=== PATIENT | female | born 1995 | race Caucasian/White ===

== ENCOUNTER 2024-09-07 06:20 | Inpatient (IN) | payer OTHER, SELFPAY ==
[2024-09-07] VITALS (62 sets, daily range): BP systolic 79–121; BP diastolic 45–74; PULSE 52–107; RESP 15–18; TEMP 36.4–36.9; O2SAT 94–98; BMI 27.6
[2024-09-07] MEDS: Lactated Ringers 1,000 ML 50 ML IV (06:45)
[2024-09-07 06:57] LABS: Absolute Lymphocyte Count 2.21 X10^3/uL (0.83-4.51); Absolute Neutrophil Count 8.1 X10^3/uL (2.0-7.7); Basophil# 0.07 X10^3/uL; Basophil% 0.6 % (0-1); Eosinophil# 0.15 X10^3/uL; Eosinophils% 1.3 % (0-5); Hematocrit 38.5 % (37-47); Hemoglobin 13.3 g/dL (12.0-15.0); Lymphocyte # 2.21 X10^3/ul (0.83-4.51); Lymphocyte % 19.3 % (19-41); Mean Corp Hgb Conc 34.5 g/dL (32-36); Mean Corpuscular Hgb 30.2 pg (27.0-32.0); Mean Corpuscular Volume 87.3 fL (81-99); Mean Platelet Vol. 11.1 fl (6.2-12.0); Monocyte# 0.87 X10^3/uL; Monocyte% 7.6 % (0-10); NRBC Flagged by Analyzer 0 % (0-5); Neutrophil % 70.7 % (47-70); Platelet Count 205 K/mm3 (150-450); RBC Distribution Width CV 14.1 % (11.6-14.6); Red Blood Count 4.41 M/mm3 (4.2-5.4); White Blood Count 11.5 K/mm3 (4.4-11.0)
[2024-09-07] MEDS: Lactated Ringers 1,000 ML 999 ML IV ×3 (07:20→09:44)
--- NOTE | 2024-09-07 07:37 | PCM.HP.OB ---
HPI - General General Date of Admission: 09/07/24 Date of Service: 09/07/24 Chief Complaint: contractions HPI Narrative ROSA MARIA MCCALL, is a 29 F who presents for contractions. No LOF No bleeding. Is a scheduled IOL today at 41 weeks Maternal Data Information Final KUSUM: 08/31/24 Gestational age: 41 PFSH PFSH Medical History Anxiety GERD (gastroesophageal reflux disease) Precipitous delivery Hemorrhoids Anemia HPV (human papilloma virus) infection Migraine aura, persistent Autoimmune disease Home Medications ?Medication ?Instructions ?Recorded ?Last Taken ?Type docosahexaenoic acid 200 mg 200 mg PO 09/07/24 09/06/24 07:11 History capsule ( DHA) famotidine 20 mg tablet 20 mg PO BID heartburn 09/07/24 09/06/24 07:10 History Allergy/AdvReac Type Severity Reaction Status Date / Time boric acid Allergy Hives Verified 09/07/24 06:33 doxycycline Allergy Hives Verified 09/07/24 06:33 minocycline Allergy Hives Verified 09/07/24 06:33 penicillin G Allergy Hives Verified 09/07/24 06:33 Surgical History History of surgery History of surgery Social History Smoking Status: Former smoker History 4 Elective abortions Hx Para 2 Spontaneous abortions Hx # Term Pregnancies Ectopic pregnancies Hx # Pregnancies Multiple births # of living children NST FHR Rate Baby A Baseline: 145 Variability:: Moderate Accelerations:: 15 x 15 Decelerations:: None NST Reactive:: Yes FHR Category:: Category I Uterine Activity:: q2-4 ROS Constitutional Constitutional: Denies fatigue, fever(s) or malaise Eyes Eyes: Denies change in vision ENT HEENT: Denies dizziness or headache(s) Cardiovascular Cardiovascular: Denies chest pain, dyspnea or lightheadedness Respiratory/Chest Respiratory/Chest: Denies cough or dyspnea Gastrointestinal Gastrointestinal: Denies change in bowel habits Genitourinary Genitourinary: Denies burning urination or genital lesions Integumentary Integumentary: Denies rash Neurologic Neurologic: Denies confusion, dizziness, headache(s), numbness or weakness Vital Signs Vital Signs Vital Signs: 09/07/24 06:50 09/07/24 06:50 09/07/24 06:51 Pulse Rate 87 Blood Pressure 111/74 BP Systolic 111 BP Diastolic 74 Pulse Ox 98 09/07/24 06:51 Pulse Rate 86 Blood Pressure BP Systolic BP Diastolic Pulse Ox Weight Weight: 73.028 kg Body Mass Index (BMI) 27.6 Physical Exam Const alert and no apparent distress General Appearance: cooperative HEENT normocephalic Resp normal respiratory effort GI soft to palpation GI Narrative: gravid, nontender, appropriate for gestational age Extremity no calf tenderness General Extremity: edema Skin no wounds Rashes: No rashes noted Psych activity/motor behavior normal Labs Labs Labs: Blood Type Pending Antibody Screen Pending Hct 38.5 % (37-47) Hgb 13.3 g/dL (12.0-15.0) Syphilis Total Ab Pending Assessment & Plan (1) Elective induction of labor planned: (2) 41 weeks gestation of : PLAN: Plan Epidural prn AROM planned GBS negative
[2024-09-07] MEDS: fentaNYL-bupivacaine (epidural) 100 ML BAG EPIDURAL (08:10)
[2024-09-07 08:26] LABS: Syphilis Antibodies Nonreactive (Nonreactive)
--- NOTE | 2024-09-07 08:46 | PCM.HP.OB ---
HPI - General General Date of Admission: 09/07/24 Chief Complaint: contractions HPI Narrative ROSA MARIA MCCALL, is a 29 F who presents in active labor. at 41 weeks in active labor, was scheduled for IOL today. Contractions began around 11pm. Maternal Data Information KUSUM Calculator Estimated Delivery Date Method Current WG Current Estimate 08/31/24 Manual 41w 0d PFSH PFSH Medical History (Updated 09/07/24 @ 11:42 by Danni Myers CNM) Anxiety GERD (gastroesophageal reflux disease) Precipitous delivery Hemorrhoids Anemia HPV (human papilloma virus) infection Migraine aura, persistent Autoimmune disease Home Medications ?Medication ?Instructions ?Recorded ?Last Taken ?Type docosahexaenoic acid 200 mg 200 mg PO 09/07/24 09/06/24 07:11 History capsule ( DHA) famotidine 20 mg tablet 20 mg PO BID heartburn 09/07/24 09/06/24 07:10 History Allergy/AdvReac Type Severity Reaction Status Date / Time boric acid Allergy Hives Verified 09/07/24 06:33 doxycycline Allergy Hives Verified 09/07/24 06:33 minocycline Allergy Hives Verified 09/07/24 06:33 penicillin G Allergy Hives Verified 09/07/24 06:33 Surgical History History of surgery History of surgery Social History Smoking Status: Former smoker History 4 Elective abortions Hx Para 2 Spontaneous abortions Hx # Term Pregnancies Ectopic pregnancies Hx # Pregnancies Multiple births # of living children NST FHR Rate Baby A Baseline: 130 Variability:: Moderate Accelerations:: 15 x 15 Decelerations:: None FHR Category:: Category I Uterine Activity:: every 1- 5minutes, moderate to strong ROS Constitutional Constitutional: Reports systems reviewed and no addt'l complaints, except as documented; Denies headache(s) Eyes Eyes: Denies acute decrease in peripheral vision, blurry vision or change in vision ENT HEENT: Reports systems reviewed and no addt'l complaints, except as documented Cardiovascular Cardiovascular: Denies chest pain or dizziness Respiratory/Chest Respiratory/Chest: Denies cough, dyspnea, dyspnea on exertion, shortness of breath at rest or shortness of breath with exertion Gastrointestinal Gastrointestinal: Denies abdominal pain, diarrhea, nausea or vomiting Genitourinary Genitourinary: Denies abdominal discomfort Musculoskeletal Musculoskeletal: Denies limited range of motion Integumentary Integumentary: Reports systems reviewed and no addt'l complaints, except as documented Neurologic Neurologic: Reports systems reviewed and no addt'l complaints, except as documented Psychiatric Psychiatric: Reports systems reviewed and no addt'l complaints, except as documented Endocrine Endocrinology: Reports systems reviewed and no addt'l complaints, except as documented Hematologic/Lymphatic Hematologic/Lymphatic: Reports systems reviewed and no addt'l complaints, except as documented Allergic/Immunologic Allergic/Immunologic: Reports systems reviewed and no addt'l complaints, except as documented Vital Signs Vital Signs Vital Signs: 09/07/24 06:50 09/07/24 06:50 09/07/24 06:51 Temperature Pulse Rate 87 Respiratory Rate Blood Pressure 111/74 BP Systolic 111 BP Diastolic 74 Pulse Ox 98 09/07/24 06:51 09/07/24 07:35 09/07/24 07:35 Temperature Pulse Rate 86 Respiratory Rate 18 Blood Pressure BP Systolic BP Diastolic Pulse Ox 97 09/07/24 07:35 09/07/24 07:54 09/07/24 07:54 Temperature 98.0 F Pulse Rate 84 Respiratory Rate Blood Pressure BP Systolic BP Diastolic Pulse Ox 97 09/07/24 07:59 09/07/24 07:59 09/07/24 08:04 Temperature Pulse Rate 92 102 H Respiratory Rate Blood Pressure BP Systolic BP Diastolic Pulse Ox 97 09/07/24 08:04 09/07/24 08:06 09/07/24 08:06 Temperature Pulse Rate 88 Respiratory Rate Blood Pressure 108/57 L BP Systolic 108 BP Diastolic 57 Pulse Ox 97 09/07/24 08:08 09/07/24 08:08 09/07/24 08:09 Temperature Pulse Rate 81 86 Respiratory Rate Blood Pressure 109/57 L BP Systolic 109 BP Diastolic 57 Pulse Ox 09/07/24 08:09 09/07/24 08:10 09/07/24 08:14 Temperature Pulse Rate 101 H Respiratory Rate 18 Blood Pressure BP Systolic BP Diastolic Pulse Ox 97 09/07/24 08:14 09/07/24 08:15 09/07/24 08:17 Temperature Pulse Rate Respiratory Rate 16 Blood Pressure 94/50 L BP Systolic 94 BP Diastolic 50 Pulse Ox 97 09/07/24 08:17 09/07/24 08:18 09/07/24 08:18 Temperature Pulse Rate 80 88 Respiratory Rate Blood Pressure 85/63 L BP Systolic 85 BP Diastolic 63 Pulse Ox 09/07/24 08:19 09/07/24 08:19 09/07/24 08:19 Temperature Pulse Rate 103 H Respiratory Rate Blood Pressure 89/54 L BP Systolic 89 BP Diastolic 54 Pulse Ox 96 09/07/24 08:20 09/07/24 08:21 09/07/24 08:21 Temperature Pulse Rate 87 Respiratory Rate 16 Blood Pressure 88/49 L BP Systolic 88 BP Diastolic 49 Pulse Ox 09/07/24 08:24 09/07/24 08:24 09/07/24 08:25 Temperature Pulse Rate 82 Respiratory Rate 15 Blood Pressure BP Systolic BP Diastolic Pulse Ox 97 09/07/24 08:26 09/07/24 08:26 09/07/24 08:29 Temperature Pulse Rate 91 90 Respiratory Rate Blood Pressure 96/52 L BP Systolic 96 BP Diastolic 52 Pulse Ox 09/07/24 08:29 09/07/24 08:29 09/07/24 08:29 Temperature Pulse Rate 86 Respiratory Rate Blood Pressure BP Systolic BP Diastolic Pulse Ox 94 96 09/07/24 08:30 09/07/24 08:31 09/07/24 08:31 Temperature Pulse Rate 82 Respiratory Rate 15 Blood Pressure 100/49 L BP Systolic 100 BP Diastolic 49 Pulse Ox 09/07/24 08:34 09/07/24 08:34 09/07/24 08:35 Temperature Pulse Rate 88 Respiratory Rate 15 Blood Pressure BP Systolic BP Diastolic Pulse Ox 98 09/07/24 08:36 09/07/24 08:36 Temperature Pulse Rate 107 H Respiratory Rate Blood Pressure 92/53 L BP Systolic 92 BP Diastolic 53 Pulse Ox Weight Weight: 161 lb Body Mass Index (BMI) 27.6 Physical Exam Const alert and oriented x3 General Appearance: cooperative Orientation / Consciousness: awake, oriented to person, oriented to place and oriented to time Exam Limitations: no limitations HEENT normocephalic Head and Scalp: normal to inspection, normocephalic and atraumatic Face and Sinus: normal facial exam Eyes General Eye: normal appearance of both eyes Neck full ROM Chest Chest: symmetrical chest wall rise Resp normal respiratory effort and normal air movement Auscultation: clear to auscultation bilaterally Cardio regular rate, regular rhythm, S1 normal heart sound, S2 normal heart sound, no murmurs, no rub, no gallops and no clicks GI normal to inspection, nondistended, normoactive bowel sounds and non-tender appearance of the vagina normal Bladder / Kidney Exam: no CVA tenderness Manual OB Exam: estimated gestational size appropriate, presentation cephalic, dilated 4, effaced 60, station -1 and other AROM clear fluid Back/Spine normal ROM Extremity normal to inspection and full ROM Skin no rashes or lesions noted Neuro oriented x3, CN's II-XII intact bilaterally and moves all extremities Sensorium / Orientation: awake, alert and oriented to person Motor Exam: clonus absent Deep Tendon Reflexes: Rt Patellar (L4): 2+ and Lt Patellar (L4): 2+ Labs Labs Labs: Blood Type O NEGATIVE Antibody Screen NEGATIVE Hct 38.5 % (37-47) Hgb 13.3 g/dL (12.0-15.0) Syphilis Total Ab Nonreactive (Nonreactive) GBS negative RPR negative O negative RPR negative HBsAG negative HepC negative Rubella Immune HIV negative GC/CT negative Assessment & Plan (1) 41 weeks gestation of : (2) Anxiety: (3) HPV (human papilloma virus) infection: COMMENT: tested positive in 2014 (4) GERD (gastroesophageal reflux disease): (5) Anemia: (6) Active labor at term: PLAN: Plan 1) Admit to labor and delivery 2) Routine labs 3) Continuous EFM 4) Pain management upon request 5) collaborative physician and notified of patient status, above assessment, and plan.
[2024-09-07] MEDS: Oxytocin 15 Units/NS 250ml 15 UNITS/250 ML IV.SOLN 83 UNITS IV (11:26)
[2024-09-07] MEDS: Oxytocin 10 UNITS/ML Vial IM (11:26)
--- NOTE | 2024-09-07 11:34 | EX.PCM.OBVAG ---
Assessment & Plan (1) Vaginal delivery: (2) Lactating mother: Maternal Data Information KUSUM Calculator Estimated Delivery Date Method Current WG Current Estimate 08/31/24 Manual 41w 0d Final KUSUM: 08/31/24 Vaginal Delivery Maternal Presentation Maternal Presentation: Active Labor Vaginal Delivery Information Procedure Performed: Spontaneous Vaginal Delivery Surgeon/Practitioner: Danni Myers Date of Procedure: 09/07/24 Pre-Procedure Diagnosis: Active labor at term Post-Procedure Diagnosis: Type of anesthesia: Epidural Estimated Blood Loss: 200 ml Time of Delivery: 11:23 Findings Description of procedure: Progressed to complete with urge to push. Epidural for pain management. of viable female infant over intact perineum. APGARS 8,9 respectively. head delivered with body immediately forthcoming, CAN x1 and body, delivered through. Placed on maternal abdomen, strong cry. Mouth and nares suctioned for secretions. Pitocin started for active 3rd stage management. Cord doubly clamped and cut by FOB after pulsations ceased, delayed cord clamping. Placenta delivered intact via de paz, 3 vessel cord intact. Perineum inspected and revealed intact. Fundus firm and hemostasis achieved. EBL 200ml . Mom and baby stable, planning to breastfeed. Family bonding well. notified of delivery. 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
[2024-09-07] MEDS: Ibuprofen 600 MG Tablet PO (16:18)
[2024-09-07] MEDS: Rho(D) Immune Globulin 300 MCG (1500 Unit) Syringe IV (18:03)
[2024-09-07] MEDS: 0.9% Saline Lock 10 ML Syringe IV (18:03)
[2024-09-07] MEDS: Acetaminophen 500 MG Tablet 1000 MG PO (20:07)
[2024-09-08] VITALS (8 sets, daily range): BP systolic 104–187; BP diastolic 57–81; PULSE 66–99; RESP 16; TEMP 36.4–36.9; O2SAT 97
[2024-09-08] MEDS: Ibuprofen 600 MG Tablet PO ×2 (02:53→09:09)
[2024-09-08] MEDS: Acetaminophen 500 MG Tablet 1000 MG PO (04:49)
[2024-09-08 06:26] LABS: Absolute Lymphocyte Count 1.83 X10^3/uL (0.83-4.51); Basophil# 0.05 X10^3/uL; Basophil% 0.4 % (0-1); Eosinophil# 0.19 X10^3/uL; Eosinophils% 1.4 % (0-5); Hematocrit 35.9 % (37-47); Hemoglobin 12.1 g/dL (12.0-15.0); Lymphocyte # 1.83 X10^3/ul (0.83-4.51); Mean Corp Hgb Conc 33.7 g/dL (32-36); Mean Corpuscular Hgb 29.9 pg (27.0-32.0); Mean Corpuscular Volume 88.6 fL (81-99); Mean Platelet Vol. 11.1 fl (6.2-12.0); Monocyte# 1.03 X10^3/uL; Monocyte% 7.9 % (0-10); NRBC Flagged by Analyzer 0 % (0-5); Neutrophil # 9.96 X10^3/uL (2.7-7.7); Neutrophil % 75.9 % (47-70); Platelet Count 185 K/mm3 (150-450); RBC Distribution Width CV 14.3 % (11.6-14.6); RBC Distribution Width SD 46.2 fl (35.1-43.9); Red Blood Count 4.05 M/mm3 (4.2-5.4); White Blood Count 13.1 K/mm3 (4.4-11.0)
--- NOTE | 2024-09-08 08:16 | PN.OBGYN_ITS ---
Subjective Subjective Doing well. Ambulating and voiding without difficulty. Mild lochia. Breast feeding. Objective Data Objective Data Vital Signs: Vital Signs Temp Pulse Resp BP Pulse Ox O2 Del Method 98.2 F 76 16 135/75 H 98 Room Air 09/08/24 02:54 09/08/24 02:54 09/08/24 02:54 09/08/24 02:54 09/07/24 08:34 09/08/24 02:54 Oxygen Delivery Method Room Air Weight: 73.028 kg Body Mass Index (BMI) 27.6 Intake & Output: Intake and Output for Last 24 Hours 09/06/24 09/07/24 09/08/24 23:59 23:59 23:59 Intake Total 3089.49 / 3089.49 Output Total 1300 / 1300 Balance 1789.49 / 1789.49 Lab / Micro Data 09/08/24 06:00 Labs: Laboratory Results - last 24 hr 09/07/24 06:40: Syphilis Total Ab Nonreactive, Blood Type O NEGATIVE, Antibody Screen NEGATIVE 09/07/24 16:10: Screen NEGATIVE, Baby's Blood Type O POSITIVE, Baby's DEANDRA NEGATIVE 09/08/24 06:00: WBC 13.1 H, RBC 4.05 L, Hgb 12.1, Hct 35.9 L, MCV 88.6, MCH 29.9, MCHC 33.7, RDW Std Deviation 46.2 H, RDW Coeff of Rosy 14.3, Plt Count 185, MPV 11.1, Immature Gran % (Auto) 0.400, Neut % (Auto) 75.9 H, Lymph % (Auto) 14.0 L, [place] % (Auto) 7.9, Eos % (Auto) 1.4, Baso % (Auto) 0.4, Absolute Neuts (auto) 10.0 H, Absolute Lymphs (auto) 1.83, Nucleated RBC % 0 ROS Constitutional Constitutional: Denies headache(s) Cardiovascular Cardiovascular: Denies chest pain or dyspnea Gastrointestinal Gastrointestinal: Denies nausea or vomiting Genitourinary Genitourinary: Denies dysuria Physical Exam Const alert, oriented x3 and no apparent distress General Appearance: cooperative and comfortable Eyes PERRL and EOMs intact bilaterally Resp normal respiratory effort GI soft to palpation and non-tender Uterus Palpation: uterus fundus firm ( below umbilicus) Extremity normal to inspection and full ROM Neuro oriented x3 and CN's II-XII intact bilaterally Psych mental status grossly normal Assessment & Plan (1) Lactating mother: (2) Vaginal delivery: PLAN: Plan Discharge home
--- NOTE | 2024-09-08 08:33 | PCM.DC.SUM ---
Providers Date of Admission: 09/07/24 Date of Discharge: 09/08/24 Primary Care Physician: Lynda Pillai, DOLLY DRIVER-C Reason For Visit: VAGINAL DELIVERY Diagnosis Discharge Diagnosis (1) Lactating mother: Status: Acute Code(s): Z39.1 - Encounter for care and examination of lactating mother (2) Vaginal delivery: Status: Acute Code(s): O80 - Encounter for full-term uncomplicated delivery Plan Discharge home Medications at Discharge Home Medications docosahexaenoic acid 200 mg capsule ( DHA) 200 mg PO 09/07/24 famotidine 20 mg tablet 20 mg PO BID heartburn 09/07/24 ibuprofen 600 mg tablet 600 mg PO Q6H PRN PRN Pain Score 1-10 #30 tabs 09/08/24 Hospital Course Operations None Procedures None Physical Exam Const alert and no apparent distress Narrative: Fundus firm, below umbilicus. Weight / BMI Weight Weight: 73.028 kg Body Mass Index (BMI) 27.6 ABG / Lab / Microbiology Data 09/08/24 06:00 Laboratory: Laboratory Results - last 24 hr 09/07/24 06:40: Antibody Screen NEGATIVE 09/07/24 16:10: Screen NEGATIVE, Baby's Blood Type O POSITIVE, Baby's DEANDRA NEGATIVE 09/08/24 06:00: WBC 13.1 H, RBC 4.05 L, Hgb 12.1, Hct 35.9 L, MCV 88.6, MCH 29.9, MCHC 33.7, RDW Std Deviation 46.2 H, RDW Coeff of Rosy 14.3, Plt Count 185, MPV 11.1, Immature Gran % (Auto) 0.400, Neut % (Auto) 75.9 H, Lymph % (Auto) 14.0 L, [place] % (Auto) 7.9, Eos % (Auto) 1.4, Baso % (Auto) 0.4, Absolute Neuts (auto) 10.0 H, Absolute Lymphs (auto) 1.83, Nucleated RBC % 0 D/C Instructions May resume sexual activity in: 6 weeks DC O2, CPAP, BIPAP Needs Home O2 Discharge instructions: No Please Follow Up With: Tracie Sauceda MD When: Follow up with our office in 1-2 and 6 weeks or as needed. [phone] Meaningful Use Info Meaningful Use Meaningful Use Diagnoses (Choose all that apply): None applicable Ischemic Stroke Statin Dosing Therapy Reference: STATIN DOSE THERAPY REFERENCE: * Patients > 75 years receive moderate or high dose statin therapy. * Patients 75 years or YOUNGER should receive HIGH intensity statin dose unless contraindicated. You will be required to document reason for non-treatment if statin daily dose does not meet guidelines. HIGH DOSE STATIN THERAPY DAILY Atorvastatin > than or = to 40 mg Rosuvastatin > than or = to 20 mg Amlodipine + Atorvastatin > than or = to 2.5/40 mg Ezetimibe + Simvastatin 10/80 mg Simvastatin 80mg Discharge Plan Admission Admit Date/Time: 09/07/24 06:20 Primary Reason for Your Visit: labor Attending Provider: Danni Myers Primary Care Provider: Lynda Pillai NP Discharge Orders/Prescriptions Prescriptions: New ibuprofen 600 mg Tablet 600 mg PO Q6H PRN PRN (Reason: Pain Score 1-10) Qty: 30 0RF Continued famotidine 20 mg tablet 20 mg PO BID DHA 200 mg capsule 200 mg PO Referrals / Follow Up: Lynda Pillai NP, DOLLY DRIVER-C [Primary Care Provider] - Disposition Disposition (needs filled in before D/C Order can be placed): Home, Self Care
--- NOTE | 2024-09-08 13:34 | CASEMGMT ---
Social Work Assessment Labor and Delivery Unit Patient Address: [address] [place] [address] Phone number: [phone] Date of Referral: 09/07/24 Time of Referral:? [id number] Referred By: Heather Vogel Date of Intervention: ??09/08/24 Time of Intervention:? 944 Reason for Referral:? dad addict/ alcoholic Sw completed chart review and acknowledges social work consult due to family history of substance use. Sw presented to bedside and introduced self to mother of baby (MOB- Makeda) and father of baby (FOB- Kirk). Sw explained reason for sw involvement and completed psychosocial assessment. History obtained from: medical records, MOB and FOB Household composition: Currently residing in the family home is LIT PAUL, their two older daughters: Bin (9) and Yenny (7). [place] baby to be included in residence when ready for discharge. Parents deny any problems or concerns with housing, reporting it to be safe and secure. Patient's parent/guardian status:? HUMBERTO and LIT have been together since 2011 when they were introduced to each other by MOB's cousin. No reports of domestic violence or intimate partner violence. ? Medical History: ?HUMBERTO is 29 year old female who is 4, para 2- now 3 following labor and delivery of . HUMBERTO received routine care during [facility]. MOB states that baby was not planned, but accepted and wanted. HUMBERTO presented to hospital and delivered baby via vaginal delivery at 41 weeks gestation on 09/07/24. Baby girl, named Becki Aguirre, was born weighing 8lb 3oz and had apgars of 8 and 9 at one and five minutes of life, respectfully. HUMBERTO states that she is breast feeding and it is going well, and baby will be followed by Dr. Whitman for pediatrics. Educational Status:? Both parents graduated from high school and deny any problems with reading, learning or comprehension. 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 Supplies: All necessary baby supplies obtained, including: car seat, safe sleep space, clothes, diapers and wipes. Childcare/Caregiver(s):?HUMBERTO reports that she does not work and will be the primary caregiver to baby along with MIESHAB when he is not at work. Transportation:Both parents have their drivers license and reliable means of transportation, no barriers. ?? Programs/Agencies Involved: ???Parents are not connected to any community agencies or resources that assist them financially. Children Services/Legal Issues:??? No prior involvement with children's services, no issues or concerns today warranting referral to be made. Behavioral Health Issues: ??Mental Health History:?FOB denies mental health history. MOB reports to having a history of anxiety. MOB states that she has struggled in the past with being a germophob. MOB states that she did not like her children to be messy or dirty or have germs on their hands. MOB states that she has never required medication to help her manage her anxiety, MOB denies experiencing baby blues or depression/ anxiety. ?? Substance Use History: Parents deny substance use prior to and during . ?? Family History:??MOB reports that her father is an alcoholic. MOB denies that he would be considered a primary caregiver to or her other children. MOB states that she is aware of her genetic disposition and has healthy and safe coping skills that she can utilize if she starts to feel overwhelmed or stressed. ??? Drug Screens: No drug screens observed while completing chart review. Family/Social Stressors:? Parents deny any problems, concerns or stressors at this time. Support Systems: MOB states that paternal grandma is their biggest support at this time. Depression/Shaken Baby/Safe Sleeping: [place] educated parents on signs and symptoms of baby blues and depression/ anxiety. MOB states that she has heard the terms depression, but has not ever heard of the baby blues. MOB states that if she felt as though she was struggling with her mental health she has several people that she feels comfortable talking to. FOB states that if MOB were to struggle with experiencing either of these issues during this period he would be able to recognize it and would know how to help her. [place] educated parents on shaken baby prevention and ABCs of safe sleep. Parents express understanding. ASSESSMENT:? MOB and baby admitted following labor and delivery. MOB and FOB both sitting in room comfortably and receptive to meeting with sw. MOB holding baby and attentive to her needs, MOB observed to hold her lovingly and affectionately. FOB quiet, but did answer questions asked when directly to him. Parents had pleasant demeanor and made eye contact while answering questions and completing assessment. Parents have everything they need for baby and are eager to be home with her. PLAN:?? No other services requested or indicated. MOB and baby to be discharged when medically ready. Parents were provided literature regarding: signs and symptoms of baby blues and mood and anxiety disorders, Help Me Grow, shaken baby prevention, ABCs of safe sleep and a list of county resources that are available for them should any needs present themselves. Panchito Mcconnell, STUDIO OPERATIONS ENGINEER IN CHARGE, MEDICAL ESTHETICIAN
== END 2024-09-08 13:35 | disposition home or self-care (01) | DRG 807 ==
PROVIDERS: Obstetrics & Gynecology; Admitting Provider Advanced Practice Midwife; PCP Nurse Practitioner Family; Referring Provider Advanced Practice Midwife; Visit Provider Advanced Practice Midwife
DX: O48.0 Post-term pregnancy (principal); Z37.0 Single live birth; O99.344 Other mental disorders complicating childbirth; F41.9 Anxiety disorder, unspecified; K21.9 Gastro-esophageal reflux disease without esophagitis; N96 Recurrent pregnancy loss; Z87.891 Personal history of nicotine dependence; Z3A.41 41 weeks gestation of pregnancy; O99.62 Diseases of the digestive system complicating childbirth; O99.02 Anemia complicating childbirth; O99.893 Other specified diseases and conditions complicating puerperium; O69.81X0 Labor and delivery complicated by cord around neck, without compression, not applicable or unspecified; Z39.1 Encounter for care and examination of lactating mother
CPT/HCPCS: 59025; 59050; 85025; 85461; 86780; 86850; 86900; 86901; 90384; 99221; A4216; G0378; J2790; J2791